=== PATIENT | male | born 1985 | race African-American/Black ===

== ENCOUNTER 2016-11-28 02:36 | Emergency (ER) | payer SELFPAY ==
--- NOTE | 2016-11-28 02:47 | PDOC ---
History of Present Illness - General Stated Complaint: FINGER INJURY History Source: Patient Exam Limitations: No Limitations - History of Present Illness Initial Comments: 11/28/16 02:44 31-year-old male who is right hand dominant presents to the emergency department complaining of pain to the left second digit/index finger. Patient states as he was putting his sneakers on 2 days ago, he used his left index finger like a shoehorn as his heel stepped into his shoe, he twisted his finger. Patient states he broke his left index finger 3 years ago and once to make sure he did not re-break it. He denies any extremity numbness or tingling sensation. Patient denies any other injuries. Pain is described as 3/10 dull nonradiating intermittent discomfort. The pain is exacerbated on movements but alleviated at rest. Occurred: reports: other (x2d ago) Upper Extremity Pain Location: left: 2nd finger Method of Injury: reports: twisted Modifying Factors: improves with: None Past History - Past Medical History Allergies/Adverse Reactions: Allergies Allergy/AdvReac Type Severity Reaction Status Date / Time No Known Allergies Allergy Verified 11/28/16 02:52 Home Medications: Ambulatory Orders NK [No Known Home Medication] 03/27/14 - Psycho/Social/Smoking Cessation Hx Anxiety: No Suicidal Ideation: No Smoking History: Never smoked Hx Alcohol Use: No Substance Use Type: Marijuana Review of Systems - Review of Systems Able to Perform ROS?: Yes Comments:: 11/28/16 02:42 Left finger: +Pain/ +swelling MUSCULOSKELETAL: Absent: myalgia, arthralgia, joint swelling SKIN: Absent: rash, itching, pallor HEMATOLOGIC/IMMUNOLOGIC: Absent: easy bleeding, easy bruising, lymphadenopathy, frequent infections All other ROS reviewed and are negative Is the patient limited Citizen Of [place] proficient: No *Physical Exam - Physical Exam Comments: 11/28/16 02:43 MUSCULOSKELETAL Normal range of motion at all joints. No bony deformities or tenderness. No CVA tenderness. EXTREMITIES: No cyanosis. No clubbing. No edema. No calf tenderness. SKIN: Warm and dry. Normal capillary refill. No rashes. No jaundice. left 2nd digit decreased R.O.M. +swelling to prox phalanx neg obv deformity cap refill <2sec ED Treatment Course - RADIOLOGY Radiograph Interpretation: 11/28/16 02:44 xray left 2nd digit chip avulsion fx to bas of mid phalanx volar splint Progress Note - Progress Note Progress Note: left index finger/ volar splint *DC/Admit/Observation/Transfer Diagnosis at time of Disposition: Fracture of phalanx of finger of left hand Qualifiers: Encounter type: initial encounter Finger: index finger Fracture type: closed Phalanx: middle Fracture alignment: nondisplaced Qualified Code(s): S62.651A - Nondisplaced fracture of medial phalanx of left index finger, initial encounter for closed fracture - Discharge Dispostion Admit: No - Patient Instructions Printed Discharge Instructions: DI for Finger Fracture Additional Instructions: Rest Tyenol /motrin as needed for pain Follow up with orthopedics/Dr. Foster this week Return to the ER for severe/persistent/worsening symptoms
[2016-11-28 02:54] VITALS: BP 128/82; PULSE 75; TEMP 98.7; BMI 34.8
--- NOTE | 2016-11-28 03:30 | PDOC ---
*Physical Exam - Vital Signs Last Vital Signs Temp Pulse Resp BP Pulse Ox 98.7 F 75 14 128/82 94 L 11/28/16 02:52 11/28/16 02:52 11/28/16 02:52 11/28/16 02:52 11/28/16 02:52 Medical Decision Making - Medical Decision Making 11/28/16 03:29 Pt seen by the Advanced Practice Provider under my direct supervision Ancillary studies reviewed I agree with plan as outlined by the Advanced Practice Provider TAVO Matos *DC/Admit/Observation/Transfer Diagnosis at time of Disposition: Finger sprain Qualifiers: Encounter type: initial encounter Finger: index finger Sprain of finger site: other site Laterality: left Qualified Code(s): S63.691A - Other sprain of left index finger, initial encounter - Referrals - Patient Instructions Printed Discharge Instructions: DI for Finger Sprain Additional Instructions: Rest Tyenol /motrin as needed for pain Follow up with orthopedics/Dr. Foster this week Return to the ER for severe/persistent/worsening symptoms - Post Discharge Activity
== END 2016-11-28 04:28 | disposition home or self-care (01) ==
LOC: JER 02:36
PROC: 2W3DX1Z Immobilization of Left Lower Arm using Splint (ICD-10-PCS; principal; 2016-11-28)
DX: S62.651A Nondisplaced fracture of middle phalanx of left index finger, initial encounter for closed fracture (principal); X50.1XXA Overexertion from prolonged static or awkward postures, initial encounter; Y93.89 Activity, other specified; Y92.89 Other specified places as the place of occurrence of the external cause
CPT/HCPCS: 73140-TC-LT; 99281-25